=== PATIENT | female | born 1945 | race Caucasian/White ===

== ENCOUNTER → 2021-01-26 10:05 | Outpatient (BNVA) | payer MEDICARE, SELFPAY | PROVIDERS: Family Provider Nurse Practitioner Family; Visit Provider Nurse Practitioner Family | DX: I10 Essential (primary) hypertension (principal); R53.83 Other fatigue; E78.5 Hyperlipidemia, unspecified; E03.9 Hypothyroidism, unspecified; R05 Cough | CPT/HCPCS: 80053; 80061; 84443; 85025 ==

== ENCOUNTER 2021-02-07 14:07 | Outpatient (CLI) | payer MEDICARE, SELFPAY ==
--- NOTE | 2021-02-07 14:21 | CT_ITS ---
WS: [id number] CT HEAD TECHNIQUE: Noncontrast CT of the head obtained from the skullbase to the vertex. CLINICAL INFORMATION: R51.9 - Headache, unspecified COMPARISON: None. DLP: 925.[address] scans at [facility] use at least one of these dose optimization techniques: automated e xposure control; mA and/or kV adjustment per patient size (includes targeted exams where dose is matc hed to clinical indication); or iterative reconstruction. FINDINGS: No evidence of intracranial hemorrhage or mass effect. Ventricular system and basal cisterns are tovar nt. Mild small vessel changes with moderate parenchymal volume loss. No extra-axial fluid collections . No evidence of mass or mass effect. Normal laureano-white differentiation. Paranasal sinuses and mastoid air cells are well aerated. .Normal visualized soft tissues. CT/CT head wo con* [id number] IMPRESSION: 1. No evidence of intracranial hemorrhage or mass effect. 2. . Mild small vessel changes. Moderate parenchymal volume loss. 3. Intracranial vascular calcification. 4. No acute intracranial findings.
--- NOTE | 2021-02-07 15:00 | CT_ITS ---
WS: [id number] CT CHEST TECHNIQUE: Noncontrast CT of the chest with coronal and sagittal reformatted images. CLINICAL INFORMATION: R05 - Cough COMPARISON: None. DLP: 651.[address] scans at [facility] use at least one of these dose optimization techniques: automated e xposure control; mA and/or kV adjustment per patient size (includes targeted exams where dose is matc hed to clinical indication); or iterative reconstruction. FINDINGS: Hyperinflation. Advanced chronic emphysematous changes. Scattered interstitial thickening and fibrosi s in both lungs. No acute pulmonary infiltrates. No focal pneumonia or pleural fluid. Chronic appeari ng interstitial thickening in the left greater than right lower lobe with pleural thickening. Tractio n bronchiectasis both lower lobes and lingula. Large esophageal hiatal hernia with partial intrathora cic stomach and air-fluid level. A few prominent anterior mediastinal lymph nodes measuring up to 8-9 mm. Enlarged right hilar lymph n ode or nodule measuring 1.8 x 1.7 CM. This is indeterminant and could be further evaluated with PET/C T and/or bronchoscopy. Neoplasm is not excluded. Secretions within the right adjacent bronchus interm edius. A few small noncalcified pulmonary nodules the largest in the right upper lobe measuring 5 mm and rig ht lower lobe measuring 6 mm. Recommend 6 month follow-up. A few additional tiny subpleural nodules. Dense aortic calcification. Normal caliber thoracic aorta. Coronary calcification. Small pericardial effusion. No axillary lymphadenopathy. Adrenal glands are normal. Small left renal cyst partially vis ualized. CT/CT chest wo con [id number] IMPRESSION: 1. Enlarged right hilar lymph node or hilar nodule measuring 1.8 x 1.7 CM. Thi s is indeterminant and could be further evaluated with PET/CT and/or bronchosco py. Neoplasm is not excluded. 2. Prominent mediastinal lymph nodes measuring 8 to 9 mm. 3. Hyperinflation with advanced chronic emphysematous changes. 4. Large esophageal hiatal hernia with partial intrathoracic stomach and air-f luid level. 5. Small pericardial effusion. 6. A few small noncalcified pulmonary nodules the largest in the right upper l obe measuring 5 mm and right lower lobe measuring 6 mm. Recommend 6 month follo w-up.
== END 2021-02-07 14:08 | disposition home or self-care (01) ==
PROVIDERS: Visit Provider Nurse Practitioner Family
DX: R05.9 Cough, unspecified (principal); R51.9 Headache, unspecified; R91.8 Other nonspecific abnormal finding of lung field; I31.3 Pericardial effusion (noninflammatory); K44.9 Diaphragmatic hernia without obstruction or gangrene
CPT/HCPCS: 70450; 71250

== ENCOUNTER → 2021-05-04 16:05 | Outpatient (BNVA) | payer MEDICARE, SELFPAY | PROVIDERS: PCP Registered Nurse; Visit Provider Nurse Practitioner Family | DX: R06.00 Dyspnea, unspecified (principal); J43.9 Emphysema, unspecified | CPT/HCPCS: 87635 ==

== ENCOUNTER → 2021-09-01 11:02 | Outpatient (BNVA) | payer MEDICARE, SELFPAY | PROVIDERS: PCP Nurse Practitioner Family; Visit Provider Internal Medicine Pulmonary Disease | DX: R93.89 Abnormal findings on diagnostic imaging of other specified body structures (principal); J43.9 Emphysema, unspecified; F17.210 Nicotine dependence, cigarettes, uncomplicated; Z71.6 Tobacco abuse counseling; R06.00 Dyspnea, unspecified; J18.9 Pneumonia, unspecified organism | CPT/HCPCS: 71046; 99214 ==

== ENCOUNTER 2021-10-04 12:04 | Outpatient (CLI) | payer MEDICARE, SELFPAY ==
--- NOTE | 2021-10-04 12:18 | CT_ITS ---
WS: [id number] CT CHEST WITHOUT INTRAVENOUS CONTRAST HISTORY: f/u lung nodule TECHNIQUE: Contiguous 5 mm axial imaging performed on the thorax. Coronal and sagittal reformats are submitted. All CT scans at [facility] use at least one of these dose optimization techniques: automated exposure control; mA and/or kV adjustment per patient size (includes targeted exams where dose is matched to clinical indication); or iterative reconstruction. CONTRAST: None DLP: 420.83 mGy.cm COMPARISON: 02/07/2021 and PET/CT 05/18/2021 Lungs and central airway: Severe chronic emphysema. The PET/CT positive well-circumscribed nodule mulugeta sures 2.0 x 1.7 cm near the RIGHT hilum at the bronchus intermedius level. No significant change in s ize since the prior examination. This nodule was noted to be PET/CT positive. There are additional sc attered nodules throughout the lungs which are all subcentimeter. These additional nodules were PET/C T positive. Some of them may be too small to characterize by PET/CT. Recommend continued close follow -up by CT or PET/CT imaging. Pleura: Normal. No pleural effusion. Heart and pericardium: Normal size heart. There is a small circumferential pericardial effusion. Mediastinum and atul: Small mediastinal and hilar lymph nodes. Lymph nodes have not significantly xuan nged since 02/07/2021. Largest lymph node measures 12 mm inferior RIGHT paratracheal region. Vessels: Extensive atherosclerotic plaque within the aorta. Mild pulmonary artery enlargement. Chest wall and lower neck: No soft tissue masses. Upper abdomen: Large portion of the stomach is intrathoracic. Continued ectasia and dilatation of the aorta into the suprarenal region. Osseous structures: No destructive process. CT/CT chest wo con [id number] IMPRESSION: 1. No significant change in the noncalcified RIGHT hilar nodule measuring 2.0 x 1.7 cm. Noted to be PET/CT positive on 05/18/2021. There are additional nodule s scattered throughout the lungs. These were not PET/CT positive. Some of these are better seen today. Recommend continued serial CT evaluation to document st ability. 2. Severe emphysema. 3. Moderate atherosclerosis aorta. 4. Large portion of the stomach is intrathoracic. 5. Indeterminate but stable mediastinal and hilar lymph nodes.
--- NOTE | 2021-10-04 13:43 | PFTS_ITS ---
Date of Study:10/04/21 Date of Dictation: MECHANICS: Forced vital capacity (FVC) is normal. Forced expiratory volume in one second (FEV1) is reduced. FEV1/FVC is reduced. FLOW VOLUME LOOP: Reduced flow at all lung volumes with significant scooping. LUNG VOLUMES: Total lung capacity (TLC) is normal. Residual volume (RV) is increased. DIFFUSING CAPACITY FOR CARBON MONOXIDE: Severely reduced. INTERPRETATION: The postbronchodilator spirometry is consistent with severe airflow obstruction. There is no significant postbronchodilator response. Lung volumes are consistent with air trapping. Gas exchange (DLCO) is severely reduced. MTDD
== END 2021-10-04 12:05 | disposition home or self-care (01) ==
LOC: RAD 12:07
PROVIDERS: PCP Nurse Practitioner Family; Visit Provider Internal Medicine Pulmonary Disease
DX: R91.1 Solitary pulmonary nodule (principal); J43.9 Emphysema, unspecified; I70.0 Atherosclerosis of aorta
CPT/HCPCS: 71250; 94060; 94618; 94726; 94729; J7611

== ENCOUNTER → 2021-10-19 11:19 | Outpatient (BNVA) | payer MEDICARE, SELFPAY | PROVIDERS: PCP Nurse Practitioner Family; Visit Provider Nurse Practitioner Family | DX: J43.9 Emphysema, unspecified (principal); R06.00 Dyspnea, unspecified; Z91.09 Other allergy status, other than to drugs and biological substances | CPT/HCPCS: 82785; 85025; 86003 ==

== ENCOUNTER → 2022-01-10 07:56 | Outpatient (BNVA) | payer MEDICARE, SELFPAY | PROVIDERS: PCP Nurse Practitioner Family; Visit Provider Nurse Practitioner Family | DX: J43.9 Emphysema, unspecified (principal); I10 Essential (primary) hypertension; R53.83 Other fatigue; S89.91XA Unspecified injury of right lower leg, initial encounter; E03.9 Hypothyroidism, unspecified | CPT/HCPCS: 80053; 84443; 85025 ==

== ENCOUNTER 2022-02-02 10:15 | Outpatient (CLI) | payer MEDICARE, SELFPAY ==
[2022-02-02 10:57] LABS: Basophils # 0.1 10^3/uL (0.0-0.1); Basophils % 0.6 %; Eosinophils # 0.3 10^3/uL (0.0-0.8); Eosinophils % 2.3 %; Hematocrit 38.5 % (37.0-47.0); Lymphocytes # 2.2 10^3/uL (0.8-4.8); Lymphocytes % 20.5 %; Mean Corpuscular HGB Conc 31.2 g/dL (30.0-36.0); Mean Corpuscular Hemoglobin 26.8 pg (28.0-34.0); Mean Corpuscular Volume 86.1 fl (81-99); Mean Platelet Volume 8.9 fL (7.4-10.4); Monocytes # 0.5 10^3/uL (0.2-0.9); Monocytes % 4.7 %; Neutrophils # 7.73 10^3/uL (1.8-7.7); Neutrophils % 71.6 %; Nucleated Red Blood Cells % 0 %; Platelet Count 297 10^3/cmm (130-400); Red Blood Count 4.47 10^6/uL (4.1-5.3); Red Cell Distribution Width 14.5 % (12.1-15.1); White Blood Count 10.8 10^3/uL (4.0-10.0)
--- NOTE | 2022-02-02 11:07 | XR_ITS ---
WS: [id number] XR chest 2V* [id number] REASON FOR EXAM: R05.9 - FINDINGS: Calcification and mild tortuosity the thoracic aorta. Normal heart size. Presumed herniation of large portion of stomach into the mediastinum. Flattening of the hemidiaphragms with interval changes indicative of central lobar emphysema. Compared to the examination of 09/11/2021 there is increased interstitial reticular opacity and possib ly airway opacity in the left lower lung. The chest is otherwise unchanged. XR/XR chest 2V* [id number] IMPRESSION: Multiple stable chronic abnormalities of the chest as above. Abnormality in the left lower lobe unknown chronicity.
[2022-02-02 11:29] LABS: Alanine Aminotransferase 6 U/L (0-33); Albumin Level 3.3 g/dL (3.5-5.2); Alkaline Phosphatase 113 U/L (35-105); Anion Gap 14.1 (5-19); Aspartate Amino Transferase 9 U/L (0-32); Blood Urea Nitrogen 14 mg/dL (8-23); Calcium 8.5 mg/dL (8.5-10.5); Carbon Dioxide 24 mmol/L (22-29); Chloride 100 mmol/L (98-107); Globulin 3.6 g/dL (1.3-4.6); Glucose 150 mg/dL (65-115); NT Pro B Type Natriuretic Pept 564 pg/mL (0-450); Osmolality Calculated 281 mOsm/kg (285-295); Potassium 4.1 mmol/L (3.5-5.1); Sodium 134 mmol/L (136-145); Total Bilirubin 0.2 mg/dL (0.15-1.2); Total Protein 6.9 g/dL (6.6-8.7)
== END 2022-02-02 10:16 | disposition home or self-care (01) ==
LOC: LAB 10:17
PROVIDERS: PCP Nurse Practitioner Family; Visit Provider Nurse Practitioner Family
DX: R05.9 Cough, unspecified (principal); R53.83 Other fatigue; J44.0 Chronic obstructive pulmonary disease with (acute) lower respiratory infection; R06.00 Dyspnea, unspecified; K44.9 Diaphragmatic hernia without obstruction or gangrene; Z91.89 Other specified personal risk factors, not elsewhere classified; R93.89 Abnormal findings on diagnostic imaging of other specified body structures; F17.210 Nicotine dependence, cigarettes, uncomplicated; Z71.6 Tobacco abuse counseling
CPT/HCPCS: 71046; 80053; 83880; 85025; 99214

== ENCOUNTER → 2022-04-18 10:16 | Outpatient (BNVA) | payer MEDICARE, SELFPAY | PROVIDERS: PCP Nurse Practitioner Family; Visit Provider Nurse Practitioner Family | DX: E07.9 Disorder of thyroid, unspecified (principal); J06.9 Acute upper respiratory infection, unspecified | CPT/HCPCS: 84443 ==